=== PATIENT | female | born 1995 | race Native Hawaiian/Other Pacific Islander ===

== ENCOUNTER 2017-09-03 07:46 | Day surgery (SDC) | payer OTHER ==
[2017-09-03 07:57] VITALS: BMI 24.0
[2017-09-03 08:26] LABS: HEMOGLOBIN 13.8 g/dL (12.0-16.0); MEAN CELL VOLUME 93.8 fl (81.0-99.0); MEAN CORPUSCULAR HEMOGLOBIN 32.3 pg (27.0-31.0); MEAN CORPUSCULAR HGB CONC 34.5 g/dL (33.0-37.0); RBC 4.26 Mil/uL (3.80-5.20); RED CELL DISTRIBUTION WIDTH 12.5 % (11.5-14.5); WHITE BLOOD COUNT 7.3 K/uL (4.8-10.8)
[2017-09-03 08:28] VITALS: RESP 18
--- NOTE | 2017-09-03 08:44 | CP.PCM.HP ---
History of Present Illness - History of Present Illness History of Present Illness: pelvic pain and adnexal mass Present on Admission - Present on Admission Any Indicators Present on Admission: No - Notes: Notes:: none Review of Systems - Hematologic/Lymphatic Additional comments: wnl Past Patient History - Past Medical History & Family History Past Medical History?: No - Past Social History Smoking Status: Light Smoker < 10 Cigarettes Daily - CARDIAC Hx Cardiac Disorders: No - PULMONARY Hx Respiratory Disorders: Yes Hx Asthma: Yes - NEUROLOGICAL Hx Neurological Disorder: No - HEENT Hx HEENT Problems: No - RENAL Hx Chronic Kidney Disease: No - ENDOCRINE/METABOLIC Hx Endocrine Disorders: No - HEMATOLOGICAL/ONCOLOGICAL Hx Blood Disorders: No - INTEGUMENTARY Hx Dermatological Problems: No - MUSCULOSKELETAL/RHEUMATOLOGICAL Hx Musculoskeletal Disorders: No - GASTROINTESTINAL Hx Gastrointestinal Disorders: Yes Hx Gastroesophageal Reflux: Yes (GERD) - GENITOURINARY/GYNECOLOGICAL Hx Genitourinary Disorders: No - PSYCHIATRIC Hx Emotional Abuse: No Hx Physical Abuse: No - SURGICAL HISTORY Hx Surgeries: Yes Hx Tonsillectomy: Yes Other/Comment: neg - ANESTHESIA Hx Anesthesia: Yes Hx Anesthesia Reactions: No Hx Malignant Hyperthermia: No Has any member of the family had a problem w/ anesthesia?: No Meds Allergies/Adverse Reactions: Allergies Allergy/AdvReac Type Severity Reaction Status Date / Time No Known Allergies Allergy Verified 09/01/17 11:26 Physical Exam - Additional Findings Additional findings: as perh&p Results - Vital Signs Recent Vital Signs: Last Vital Signs Temp 98.5 F 09/03/17 08:26 Pulse 84 09/03/17 08:32 Resp 18 09/03/17 08:26 BP 98/62 L 09/03/17 08:26 Pulse Ox 98 09/03/17 08:26 - Labs Result Diagrams: 09/03/17 08:09 Labs: Laboratory Results - last 24 hr 09/03/17 08:09 WBC 7.3 RBC 4.26 Hgb 13.8 Hct 40.0 MCV 93.8 MCH 32.3 H MCHC 34.5 RDW 12.5 Plt Count 344
--- NOTE | 2017-09-03 08:48 | CP.PCM.HP ---
Present on Admission - Present on Admission Any Indicators Present on Admission: No Past Patient History - Past Medical History & Family History Past Medical History?: No - Past Social History Smoking Status: Light Smoker < 10 Cigarettes Daily - CARDIAC Hx Cardiac Disorders: No - PULMONARY Hx Respiratory Disorders: Yes Hx Asthma: Yes - NEUROLOGICAL Hx Neurological Disorder: No - HEENT Hx HEENT Problems: No - RENAL Hx Chronic Kidney Disease: No - ENDOCRINE/METABOLIC Hx Endocrine Disorders: No - HEMATOLOGICAL/ONCOLOGICAL Hx Blood Disorders: No - INTEGUMENTARY Hx Dermatological Problems: No - MUSCULOSKELETAL/RHEUMATOLOGICAL Hx Musculoskeletal Disorders: No - GASTROINTESTINAL Hx Gastrointestinal Disorders: Yes Hx Gastroesophageal Reflux: Yes (GERD) - GENITOURINARY/GYNECOLOGICAL Hx Genitourinary Disorders: No - PSYCHIATRIC Hx Emotional Abuse: No Hx Physical Abuse: No - SURGICAL HISTORY Hx Surgeries: Yes Hx Tonsillectomy: Yes Other/Comment: neg - ANESTHESIA Hx Anesthesia: Yes Hx Anesthesia Reactions: No Hx Malignant Hyperthermia: No Has any member of the family had a problem w/ anesthesia?: No Meds Allergies/Adverse Reactions: Allergies Allergy/AdvReac Type Severity Reaction Status Date / Time No Known Allergies Allergy Verified 09/01/17 11:26 Results - Vital Signs Recent Vital Signs: Last Vital Signs Temp 98.5 F 09/03/17 08:26 Pulse 84 09/03/17 08:32 Resp 18 09/03/17 08:26 BP 98/62 L 09/03/17 08:26 Pulse Ox 98 09/03/17 08:26 - Labs Result Diagrams: 09/03/17 08:09 Labs: Laboratory Results - last 24 hr 09/03/17 08:09 WBC 7.3 RBC 4.26 Hgb 13.8 Hct 40.0 MCV 93.8 MCH 32.3 H MCHC 34.5 RDW 12.5 Plt Count 344 Assessment & Plan - Assessment and Plan (Free Text) Assessment: pelvic pain and adnexal mass Plan: for laparoscopy and possible laparotmy
[2017-09-03] MEDS ORDERED: Propofol 10 mg/ml Inj (20 ML) ONE (09:42)
[2017-09-03] MEDS ORDERED: Midazolam 2 MG/2 ML VIAL ONE (09:43)
[2017-09-03] MEDS ORDERED: ePHEDrine 50 mg/ml Inj ONE (09:43)
[2017-09-03] MEDS ORDERED: Succinylcholine 200 mg/10 ml Inj IV ONE (09:44)
[2017-09-03] MEDS ORDERED: Rocuronium 10 mg/ml (5 ml) ONE (09:44)
[2017-09-03] MEDS ORDERED: Lidocaine 4% (Laryng-O-Jet) Kit MM ONE (09:45)
[2017-09-03] MEDS ORDERED: Lactated Ringer's 1,000 ML IV ONE (09:50)
[2017-09-03] MEDS ORDERED: Dexamethasone 4 mg/1 ml ONE (10:19)
[2017-09-03] MEDS ORDERED: Lidocaine 2% MPF (5 ml) Inj ONE (10:19)
[2017-09-03] MEDS ORDERED: Desflurane Inhalation Anesthetic Liq (240 ml) ONE (11:00)
[2017-09-03] MEDS ORDERED: Neostigmine Methylsulfate 2 MG/2 ML ML IV ONE (11:25)
[2017-09-03] MEDS ORDERED: Lactated Ringer's 1,000 ML IV SCH (11:45)
[2017-09-03] MEDS ORDERED: Oxycodone/Acetaminophen 5/325 mg Tab PO PRN (11:58)
[2017-09-03 14:23] VITALS: O2SAT 98
[2017-09-03 17:40] VITALS: BP 112/67; PULSE 72; TEMP 97.4
--- NOTE | 2017-09-08 08:29 | OP ---
DATE: 09/03/2017 PREOPERATIVE DIAGNOSIS: Pelvic pain. POSTOPERATIVE DIAGNOSES: Pelvic pain. SURGEON: Jourdan Quintero MD. EXAMINER RATING CLERK: Rashad Elliott MD. ANESTHESIA: Rekha Vasquez MD. PROCEDURE: Laparoscopy with ovarian cystectomy. ESTIMATED BLOOD LOSS: Minimal. DESCRIPTION OF PROCEDURE: With the patient in the dorsal lithotomy position, under general anesthesia, patient was prepped and draped in the usual sterile manner. Dr. Elliott assisted in the preparation of the surgery due to the nature of the surgery and possible exploratory lap. After this was done, straight catheter was used to enter the bladder. Patient was examined under anesthesia. Nothing remarkable. After this was done, an [place], small uterine manipulator put into the uterus. The anterior cervix was grasped with single-tooth tenaculum and dilated. After this was done, most of the abdomen was tented, Dr. Elliott assisting, and Veress needle put into place and abdomen inflated to about 4 L of CO2. Following this, a small incision was made below the umbilicus about 1 cm and #10 trocar was introduced, leaving the sleeve in place. Following this, the laparoscope with camera attached was then introduced to the abdominopelvic cavity, visualizing the right ovary with multiple cysts and left ovary normal. There were no other abnormalities found. The cyst was lysed and specimen was taken from the cyst capsule, sent for Pathology. There was no bleeding or anything like that and pelvic cavity was irrigated until clean. After this, instruments were removed from the abdominopelvic cavity. Dr. Elliott was assisting each step along the way. Instruments were removed. The abdomen was deflated and the incision was closed with 2 Vicryl and Dermabond. Hemostasis was maintained. Patient tolerated the procedure well and was in satisfactory condition on her way to recovery room. Dr. Elliott was present from the beginning of the surgery in preparation till the end of the surgery after the last stitch was applied. Jourdan Quintero MD
== END 2017-09-03 17:50 | disposition home or self-care (01) ==
LOC: H.OPSURG 07:46
PROVIDERS: ATTEND Specialist
DX: N83.291 Other ovarian cyst, right side (principal); R10.2 Pelvic and perineal pain; F17.210 Nicotine dependence, cigarettes, uncomplicated; J45.909 Unspecified asthma, uncomplicated; K21.9 Gastro-esophageal reflux disease without esophagitis
CPT/HCPCS: 36415; 58662; 85027; 88104; 88305; J0330; J0694; J1100; J1170; J2250; J2405; J2704; J2710; J3010; J7030; J7120